=== PATIENT | female | born 1990 | race Hispanic/Latino ===

== ENCOUNTER 2020-08-19 10:04 | Outpatient (CLI) | payer OTHER | END 2020-08-19 10:05 | disposition home or self-care (01) | LOC: CSHULT 10:04 | PROVIDERS: ATTEND Family Medicine | DX: O09.892 Supervision of other high risk pregnancies, second trimester (principal); Z3A.19 19 weeks gestation of pregnancy | CPT/HCPCS: 76805 ==

== ENCOUNTER 2020-10-01 17:12 | Day surgery (SDC) | payer OTHER ==
[2020-10-01 17:47] VITALS: BMI 25.0
[2020-10-01] MEDS ORDERED: hydrALAZINE 20 MG/ML VIAL SLOW IVP PRN (18:30)
== END 2020-10-01 19:06 ==
LOC: CSHLD/OP 17:12
PROVIDERS: ATTEND Family Medicine
DX: O36.8120 Decreased fetal movements, second trimester, not applicable or unspecified (principal); O34.211 Maternal care for low transverse scar from previous cesarean delivery; O99.282 Endocrine, nutritional and metabolic diseases complicating pregnancy, second trimester; E03.9 Hypothyroidism, unspecified; Z3A.25 25 weeks gestation of pregnancy; Z79.899 Other long term (current) drug therapy
CPT/HCPCS: 99282

== ENCOUNTER 2020-12-10 13:05 | Day surgery (SDC) | payer OTHER ==
[2020-12-10 15:06] VITALS: BMI 24.2
[2020-12-10] MEDS ORDERED: hydrALAZINE 20 MG/ML VIAL SLOW IVP PRN (15:15)
== END 2020-12-10 14:50 | disposition home health service (06) ==
LOC: CSHLD/OP 13:05
PROVIDERS: ATTEND Family Medicine
DX: O47.03 False labor before 37 completed weeks of gestation, third trimester (principal); O99.283 Endocrine, nutritional and metabolic diseases complicating pregnancy, third trimester; O99.343 Other mental disorders complicating pregnancy, third trimester; O34.219 Maternal care for unspecified type scar from previous cesarean delivery; E07.9 Disorder of thyroid, unspecified; F41.9 Anxiety disorder, unspecified; N85.8 Other specified noninflammatory disorders of uterus; Z3A.35 35 weeks gestation of pregnancy; Z79.899 Other long term (current) drug therapy
CPT/HCPCS: 99282

== ENCOUNTER 2020-12-22 15:11 | Day surgery (SDC) | payer OTHER ==
[2020-12-22 16:00] VITALS: BMI 26.9
[2020-12-22] MEDS ORDERED: hydrALAZINE 20 MG/ML VIAL SLOW IVP PRN (18:01)
[2020-12-22] MEDS ORDERED: Lactated Ringer's 2,000 ML IV SCH (18:15)
== END 2020-12-22 18:53 | disposition home health service (06) ==
LOC: CSHLD/OP 15:11
PROVIDERS: ATTEND Family Medicine
DX: O47.1 False labor at or after 37 completed weeks of gestation (principal); O99.283 Endocrine, nutritional and metabolic diseases complicating pregnancy, third trimester; E03.9 Hypothyroidism, unspecified; O34.219 Maternal care for unspecified type scar from previous cesarean delivery; Z3A.37 37 weeks gestation of pregnancy; Z79.899 Other long term (current) drug therapy
CPT/HCPCS: 96360; 96361; 99283

== ENCOUNTER 2020-12-27 08:47 | Outpatient (CLI) | payer OTHER ==
[2020-12-28 01:29] LABS: SARS-CoV-2 PCR by NAA Not Detected (NotDetected)
== END 2020-12-27 08:48 | disposition home or self-care (01) ==
LOC: CSHLAB 08:47
PROVIDERS: ATTEND Family Medicine
DX: Z20.822 Contact with and (suspected) exposure to COVID-19 (principal)
CPT/HCPCS: U0003; U0005

== ENCOUNTER 2020-12-31 07:30 | Inpatient (IN) | payer MEDICAID, OTHER, SELFPAY ==
[2020-12-31 12:10] VITALS: BMI 26.9
[2020-12-31] MEDS: Lactated Ringer's 1,000 ML IV SCH ×2 (12:27→13:23)
[2020-12-31] MEDS ORDERED: Ondansetron PF 4 MG/2 ML Vial IVP PRN ×2 (12:38→16:42)
[2020-12-31] MEDS ORDERED: Famotidine/PF 20 mg/2ml Vial SLOW IVP PRN (12:38)
[2020-12-31] MEDS ORDERED: Bicitra 30 ML UDCUP PO PRN (12:38)
[2020-12-31] MEDS ORDERED: ceFAZolin 2 GM/Dextrose 50 ML 2 GM in Premix Bag 1 BAG IVPB SCH (12:38)
[2020-12-31] MEDS ORDERED: Promethazine HCl 25 MG/ML VIAL IM PRN ×2 (12:38→16:42)
[2020-12-31] MEDS ORDERED: hydrALAZINE 20 MG/ML VIAL SLOW IVP PRN ×2 (12:38→16:42)
[2020-12-31] MEDS ORDERED: Misoprostol 200 MCG TAB ONE (13:02)
[2020-12-31] MEDS ORDERED: Carboprost 250 MCG/ML AMP ONE (13:03)
[2020-12-31] MEDS ORDERED: Methylergonovine 0.2 MG/ML VIAL ONE (13:03)
[2020-12-31 13:15] LABS: Hemoglobin 10.8 g/dL (12.0-15.5); Mean Corpuscular HGB CONC 31.3 g/dL (32.0-36.0); Mean Corpuscular Hemoglobin 25.1 pg (27.0-33.0); Mean Platelet Volume 12.2 fl (7.4-10.4); Platelet Count 173 10x3/uL (150-450); RBC Distribution Width 14.1 % (11.5-14.5); Red Blood Cell (RBC) Count 4.31 10x6/uL (3.90-5.03); White Blood Cell (WBC) Count 6.7 10x3/uL (3.5-10.5)
[2020-12-31] MEDS ORDERED: Phenylephrine 40 MG/NS 250 ML 250 ML ONE (13:31)
[2020-12-31] MEDS ORDERED: Oxytocin 10 UNITS/ML VIAL ONE (13:34)
[2020-12-31] MEDS ORDERED: Ondansetron PF 4 MG/2 ML Vial ONE (13:34)
[2020-12-31] MEDS ORDERED: Morphine PF 10 MG/10 ML VIAL ONE ×2 (13:37→13:39)
[2020-12-31 14:00] LABS: Syphilis Antibody Nonreactive (Nonreactive); Syphilis Antibody Index 0.03 S/CO (<1.00 Non-Reactive)
[2020-12-31 14:01] LABS: Hep B Surf Ag Non-Reactive S/CO (NonReactive)
[2020-12-31] MEDS ORDERED: Ketorolac Tromethamine 30 MG/ML VIAL ONE (14:45)
[2020-12-31 15:18] LABS: HBSAg Index 0.12 S/CO (0-0.99)
[2020-12-31] MEDS: NS w/ Oxytocin 30 units 500 ML ONE ×2 (16:15→18:45)
[2020-12-31] MEDS ORDERED: Bisacodyl 10 MG SUPP PR PRN (16:42)
[2020-12-31] MEDS ORDERED: Lanolin Ointment 7 GM TUBE TOP PRN (16:42)
[2020-12-31] MEDS ORDERED: NS w/ Oxytocin 30 units 500 ML IV SCH (16:42)
[2020-12-31] MEDS ORDERED: diphenhydrAMINE 25 MG CAP PO PRN (16:42)
[2020-12-31] MEDS ORDERED: Meperidine HCl/PF 25 MG/ML VIAL IM PRN (16:42)
[2020-12-31] MEDS ORDERED: Boostrix 0.5 ML (Tdap) VIAL IM ONE (16:42)
[2020-12-31] MEDS: Ketorolac Tromethamine 30 MG/ML VIAL IVP SCH (19:23)
[2020-12-31] MEDS: Docusate Calcium (SURFAK) 240 MG CAP PO SCH (20:58)
[2020-12-31] MEDS: Ferrous Sulfate 325 MG TAB PO SCH (20:58)
[2021-01-01] MEDS: Ketorolac Tromethamine 30 MG/ML VIAL IVP SCH ×2 (02:02→08:43)
[2021-01-01 05:52] LABS: Hemoglobin 8.5 g/dL (12.0-15.5); Mean Corpuscular HGB CONC 32.1 g/dL (32.0-36.0); Mean Corpuscular Hemoglobin 25.1 pg (27.0-33.0); Mean Corpuscular Volume 78.2 fl (81.6-98.3); Mean Platelet Volume 12.5 fl (7.4-10.4); Platelet Count 155 10x3/uL (150-450); RBC Distribution Width 14.5 % (11.5-14.5); Red Blood Cell (RBC) Count 3.39 10x6/uL (3.90-5.03); White Blood Cell (WBC) Count 5.5 10x3/uL (3.5-10.5)
[2021-01-01] MEDS: HYDROcodone/Acetaminophen 5/325 mg Tablet PO PRN ×4 (05:58→19:57)
[2021-01-01] MEDS: Prenatal Vitamin 1 TAB PO SCH (08:52)
[2021-01-01] MEDS: Ferrous Sulfate 325 MG TAB PO SCH ×2 (08:52→21:48)
[2021-01-01] MEDS: Docusate Calcium (SURFAK) 240 MG CAP PO SCH ×2 (08:52→21:48)
[2021-01-01] MEDS: Simethicone Chewable 80 MG TAB PO PRN ×2 (08:53→14:15)
[2021-01-01] MEDS: Ibuprofen 800 MG TAB PO SCH ×2 (14:07→21:47)
[2021-01-02] MEDS: Ibuprofen 800 MG TAB PO SCH ×3 (04:18→21:57)
[2021-01-02] MEDS: HYDROcodone/Acetaminophen 5/325 mg Tablet PO PRN ×4 (04:24→19:36)
[2021-01-02] MEDS: Prenatal Vitamin 1 TAB PO SCH (08:39)
[2021-01-02] MEDS: Ferrous Sulfate 325 MG TAB PO SCH ×2 (08:39→21:57)
[2021-01-02] MEDS: Docusate Calcium (SURFAK) 240 MG CAP PO SCH ×2 (08:39→21:57)
[2021-01-03] MEDS: HYDROcodone/Acetaminophen 5/325 mg Tablet PO PRN ×2 (05:31→11:01)
[2021-01-03] MEDS: Ibuprofen 800 MG TAB PO SCH (05:31)
[2021-01-03] MEDS: Prenatal Vitamin 1 TAB PO SCH (07:51)
[2021-01-03] MEDS: Ferrous Sulfate 325 MG TAB PO SCH (07:51)
[2021-01-03] MEDS: Docusate Calcium (SURFAK) 240 MG CAP PO SCH (07:51)
[2021-01-03 07:54] VITALS: BP 127/81; TEMP 99
== END 2021-01-03 14:30 | disposition home or self-care (01) | DRG 788 ==
LOC: CSHLD 11:01 → CSHPP 17:30
PROVIDERS: ADMIT Family Medicine; ATTEND Family Medicine
PROC: 10D00Z1 Extraction of Products of Conception, Low, Open Approach (ICD-10-PCS; principal; 2020-12-31)
PROC: 10907ZC Drainage of Amniotic Fluid, Therapeutic from Products of Conception, Via Natural or Artificial Opening (ICD-10-PCS; 2020-12-31)
DX: O34.211 Maternal care for low transverse scar from previous cesarean delivery (principal); O69.81X0 Labor and delivery complicated by cord around neck, without compression, not applicable or unspecified; Z3A.38 38 weeks gestation of pregnancy; Z37.0 Single live birth
CPT/HCPCS: 36415; 51702; 85027; 86780; 86850; 86900; 86901; 87340; J0690; J1885; J2274; J2405; J2590; J7120; S0028